=== PATIENT | female | born 1950 | race Caucasian/White ===

== ENCOUNTER → 2016-09-30 | Outpatient (CLI) | payer MEDICARE, BC ==
[~2016-09-30] MED LIST: ALIGN4 MG PO; B-COMPLEX-VITA1 EACH PO; LOTREL 10-20 MG1 CAP PO; MULTI VITAMIN1 EACH PO; NEURONTIN600 MG PO; ZOLOFT PO
--- NOTE | ~2016-09-30 | MY11 ---
[facility] A Service of [facility] & [facility] RADIOLOGY TEXT RESULTS PATIENT: GLORIA ESPINOZA LOCATION: [facility] : 54 UNIT #: [id number] AGE: [address]: Bisi Rizvi APRN SEX: F ORDER DR: [id number] [facility]. [place], [place] [address] [id number] MR#: [id number] Acc #: [id number] NAME: GLORIA ESPINOZA : 1950 SEX: F STUDY DATE/TIME: 09/30/2016 10:13 UNIT: [facility] ROOM: STUDY DESCRIPTION: MY Mammogram Screening Dig Steve Attending Physician: Bisi Rizvi A.P.R.N. Referring Physician: Bisi Rizvi A.P.R.N. Ordering Physician: Bisi Rizvi A.P.R.N. Primary Care Physician: Bisi Rizvi A.P.R.N. MEDICAL IMAGING REPORT This report is preliminary unless electronic signature is present EXAM Bilateral digital screening mammogram with CAD, 09/30/2016. INDICATION 66-year-old female presenting for routine screening. No reported problems. No personal or family history of breast cancer. No surgeries. TECHNIQUE CC and MLO views were obtained and reviewed with an FDA-approved CAD device. COMPARISONS 10/28/2009, 10/01/2008, 08/22/2007 COMMENTS Breast parenchyma is composed of scattered fibroglandular densities. The pattern is unchanged. There is no new dominant nodule, mass, or suspicious cluster of microcalcifications. Benign calcifications are present. Faint benign-appearing nodularity bilaterally unchanged. Intramammary nodes present bilaterally. IMPRESSION Benign screening mammogram. One-year followup recommended. Patients over the age of 40 are entered into a reminder system with target due date for the next mammogram. A result letter will also be sent to the patient. BIRADS: 2 Benign finding. Dictated by... [facility] A Service of [facility] RADIOLOGY TEXT RESULTS PATIENT: GLORIA ESPINOZA LOCATION: [facility] : 54 UNIT #: [id number] AGE: [address]: Bisi Rizvi APRN SEX: F ORDER DR: Fawad Morris M.D. THIS IS AN ELECTRONICALLY VERIFIED REPORT Fawad Morris M.D. at 10/05/2016 4:55 PM PATIENCE/radha TD: 10/05/2016 14:41 JOB #: [id number] MEDICAL IMAGING REPORT COPY
== END | disposition home or self-care (01) ==
LOC: CWCC 09:53
DX: Z12.31 Encounter for screening mammogram for malignant neoplasm of breast (principal)
CPT/HCPCS: G0202